=== PATIENT | male | born 1955 | race Caucasian/White ===

== ENCOUNTER → 2018-05-24 | Outpatient (CLI) | payer BC | LOC: MERGE 12:06 → BMCIMAGING 12:06 | PROVIDERS: ATTEND Family Medicine | DX: M79.645 Pain in left finger(s) (principal); M79.644 Pain in right finger(s) ==

== ENCOUNTER → 2018-05-27 | Outpatient (CLI) | payer BC | LOC: FIMAGING 18:09 → MERGE 18:09 | PROVIDERS: ATTEND Urology | DX: N20.0 Calculus of kidney (principal); N28.89 Other specified disorders of kidney and ureter; Z87.442 Personal history of urinary calculi ==

== ENCOUNTER 2018-06-11 12:54 | Day surgery (SDC) | payer BC ==
[2018-06-11] MEDS ORDERED: levOFLOXACIN 500 MG/DEXTROSE 100 ML IV ONE (13:02)
[2018-06-11] MEDS ORDERED: LR 1,000 ML IV ONE (13:02)
[2018-06-11] MEDS ORDERED: DEXAMETHASONE 4 MG/ML VIAL ONE (13:19)
[2018-06-11] MEDS ORDERED: fentaNYL 100 MCG/2 ML INJ ONE ×3 (13:19→18:42)
[2018-06-11] MEDS ORDERED: PROPOFOL 200 MG/20 ML VIAL ONE (13:19)
[2018-06-11] MEDS ORDERED: LIDOCAINE 2% 5 ML SDV ONE (13:19)
[2018-06-11] MEDS ORDERED: ONDANSETRON 4 MG/2 ML VIAL ONE (13:19)
--- NOTE | 2018-06-11 15:11 | PDHPUP ---
History & Physical Update H&P update statement: This history and physical update is based on an assessment of the patient which was completed after admission or registration (within 24 hours), but prior to the surgery/procedure. H&P update: H&P reviewed & patient examined, no change in patient's condition since H&P completed
--- NOTE | 2018-06-11 15:13 | PDANEPAE ---
ANE Past Medical History - Cardiovascular History Hx Hypertension: No Hx Arrhythmias: No Hx Chest Pain: No Hx Coronary Artery / Peripheral Vascular Disease: No Hx CHF / Valvular Disease: No Hx Palpitations: No - Pulmonary History Hx COPD: No Hx Asthma/Reactive Airway Disease: No Hx Recent Upper Respiratory Infection: No Hx Oxygen in Use at Home: No Hx Sleep Apnea: No Sleep Apnea Screening Result - Last Documented: Positive - Neurologic History Hx Cerebrovascular Accident: No Hx Seizures: No Hx Dementia: No - Endocrine History Hx Diabetes: No - Renal History Hx Renal Disorders: No Renal History Comment: KINEY STONES X3 LAST YEAR - Neurological & Psychiatric Hx Hx Neurological and Psychiatric Disorders: No - Cancer History Hx Cancer: No - Congenital Disorder History Hx Congenital Disorders: No - GI History Hx Gastrointestinal Disorders: No - Other Health History Other Health History: NEG - Chronic Pain History Chronic Pain: No - Surgical History Prior Surgeries: VASECTOMY. VASECTOMY REVERSAL ANE Review of Systems Review of Systems: - Exercise capacity METS (RN): 5 METS ANE Patient History - Allergies Allergies/Adverse Reactions: Sulfa (Sulfonamide Antibiotics) Allergy (Verified 06/04/18 11:18) BRIGHT RED SPOTS - Home Medications Home Medications: Flomax 06/04/18 [Last Taken 06/11/18 08:00] Ibuprofen 06/04/18 [Last Taken 06/04/18] Levaquin 750 mg PO 06/04/18 [Last Taken 06/11/18 08:00] - NPO status NPO Since - Liquids (Date): 06/11/18 NPO Since - Liquids (Time): 10:00 NPO Since - Solids (Date): 06/10/18 NPO Since - Solids (Time): 20:00 - Smoking Hx Smoking Status: Never smoked ANE Labs/Vital Signs - Vital Signs Blood Pressure: 121/84 Heart Rate: 81 Respiratory Rate: 14 O2 Sat (%): 95 Height: 182.88 cm Weight: 81.647 kg ANE Physical Exam - Airway Neck exam: FROM Mallampati Score: Class 2 Mouth exam: normal dental/mouth exam - Pulmonary Pulmonary: no respiratory distress, no rales or rhonchi, clear to auscultation - Cardiovascular Cardiovascular: regular rate and rhythym, no murmur, rub, or gallop - ASA Status ASA Status: II ANE Anesthesia Plan Anesthesia Plan: GA w LMA
[2018-06-11] MEDS ORDERED: SCOPOLAMINE HYDROBROMIDE 1 MG/3 DAYS PATCH TD SCH (15:15)
[2018-06-11] MEDS ORDERED: LIDOCAINE 2% JELLY 20 ML (UROJECT) ONE (15:17)
[2018-06-11] MEDS ORDERED: IOPAMIDOL (ISOVUE-M 300) 15 ML VIAL ONE (15:17)
[2018-06-11] MEDS ORDERED: MEPERIDINE 25 MG/0.5 ML AMP IVP PRN (15:20)
[2018-06-11] MEDS ORDERED: HYDROmorphONE/DILAUDID 2 MG/ML INJ IVP PRN (15:20)
[2018-06-11] MEDS ORDERED: oxyCODONE IR 5 MG TAB PO PRN (15:20)
[2018-06-11] MEDS ORDERED: PHENYLEPHRINE HCL 100 MCG/ML SYR IVP PRN (15:20)
[2018-06-11] MEDS ORDERED: ONDANSETRON 4 MG/2 ML VIAL IVP PRN (15:20)
[2018-06-11] MEDS ORDERED: PROMETHAZINE HCL 25 MG/ML INJ IVP PRN (15:20)
[2018-06-11] MEDS ORDERED: METOCLOPRAMIDE 10 MG/2 ML VIAL IVP PRN (15:20)
[2018-06-11] MEDS ORDERED: fentaNYL 100 MCG/2 ML INJ IVP PRN (15:20)
[2018-06-11] MEDS ORDERED: NALOXONE HCL 0.4 MG/ML INJ IVP PRN (15:20)
[2018-06-11] MEDS ORDERED: LR 500 ML IV PRN (15:20)
[2018-06-11] MEDS ORDERED: PROPOFOL/EMULSION 500 MG/50 ML BOTTLE IV ONE ×6 (15:22→18:34)
--- NOTE | 2018-06-11 16:02 | POSTANESTH ---
Post Anesthetic Evaluation Cardiovascular Status: Normal, Stable Respiratory Status: Normal, Stable Level of Consciousness/Mental Status: Can Participate in Eval Pain Control: Adequate, Prn Tx Ordered Nausea/Vomiting Control: Adequate, Prn Tx Ordered Complications Possibly Related to Anesthesia: None Noted
[2018-06-11] MEDS ORDERED: OPIUM/BELLADONNA ALKALO SUPP PR ONE (16:15)
--- NOTE | 2018-06-11 19:56 | POSTOPPROG ---
Post Op Note Date of Operation: 06/11/18 Surgeon: Parisa Maloney Anesthesiologist: Arturo Pre-op Diagnosis: right renal stone Post-op Diagnosis: same Indication: right renal stone, recent Klebsiella UTI Procedure: cysto, RURS, laser, stent,basket ext stone, intraop fluoro, RGP Findings: large hard difficult to access lower pole stone Inf/Abcess present in the surg proc area at time of surgery?: No EBL: Minimal Complications: None, pt tolerated procedure well Specimen(s): stone fragments
[2018-06-11 20:51] VITALS: BP 129/78
--- NOTE | 2018-06-12 16:55 | GOP ---
DATE OF OPERATION: 06/11/2018 SURGEON: Parisa Maloney MD ANESTHESIOLOGIST: Dr. Morris. PREOPERATIVE DIAGNOSIS: Right renal stone and recent urinary tract infection. POSTOPERATIVE DIAGNOSIS: Right renal stone and recent urinary tract infection. PROCEDURE PERFORMED: Cystoscopy, right ureteroscopy, laser lithotripsy, basket extraction of stone, intraoperative fluoroscopy, retrograde pyelogram, and placement of stent. FINDINGS: This was a very difficult case. He had a large, very hard, dense stone in the lower pole that was difficult to access with my scope due to his anatomy and the location of the stone and the angle of the stone that made lasering difficult. I spent 3 hours lasering the stone, and by 3 hours, I felt that I would come back at a second procedure and basket extract all of the stone. ESTIMATED BLOOD LOSS: Minimal. INDICATIONS: Right lower pole renal stone, 14 mm x 9 mm x 15mm stone, and recent klebsiella UTI. DESCRIPTION OF PROCEDURE: Patient was taken back to the cystoscopy suite, placed on the cystoscopy table in the supine position. General anesthesia induced without complication. Time-out performed. Core measures satisfied, including placement of Martha Hugger, SCDs, and administration of Rocephin antibiotic. He was brought to the end of the table, placed in a dorsal lithotomy position. All pressure points padded. Genitalia draped and prepped in the standard surgical fashion with Betadine. A rigid cystoscope easily cannulated the urethral meatus and was advanced atraumatically into the bladder. Best cystoscopy performed. Exam with no lesions, cellules, trabeculations, or abnormalities. The right ureteral orifice was easily identified. Two Glidewires were placed without difficulty in the right collecting system with fluoroscopic and cystoscopic guidance. Then, a 12/14- [place] ureteral access sheath was advanced without difficulty up into the right ureteropelvic junction area. Flexible cystoscope was advanced into the sheath and into the right kidney, and best nephroscopy performed, and there was the large stone that was consistent on CT scan that was seen in the lower pole. Laser was advanced to the level of the stone. There were actually 2 stones, one very sizable stone and another one right next to it. Laser was used to then start lasering the stone and the stone was very hard, it did not laser easily, and the angle at which it was sitting in the lower pole made access very difficult, and I had a very difficult time gaining access to the more medial aspect of this very large stone. I did use a normal Olympus ureteroscope for lasering initially, and then I felt this would be a case for using the disposable [employer] ureteroscope, and so I did switch over to the [employer], but this did not make it any easier to gain access to the stone with this disposable scope. Also, the retroflex made advancing the laser very difficult. Every time I needed to adjust my laser I would have to pull back into his renal pelvis, advance the laser, and then get back down into the stone, so it was a very tedious and difficult process, not only because of the density of the stone, but also because of the location, angle of the calyx, and its size. I did work for nearly 3 hours lasering the stone into dust, and at the end, I was able to finally basket the remainign solid stone and put it more into the upper pole of the renal pelvis, but there were several larger fragments; 90%, though, was dust and would likely pass on its own, but with these larger fragments and given that I had been doing this for 3 hours, I felt, at this time , it was necessary to come back for a second procedure, for a second look. So at this point, I had a safety wire still up. I removed the scope and the sheath together. I examined the wall of the ureter, which was healthy, without any injury or abnormalities. I then back-loaded my safety wire into the cystoscope and placed a 6-[place]imbabwean multivariable stent with a curl in the kidney pelvis and a nice curl in the bladder. The bladder was then emptied. Lidocaine jelly and belladonna opium suppository were placed. I now considered the procedure complete. He was awoken from anesthesia and transferred to PACU in good condition. We will follow up with a second-look procedure in a week to 2 weeks. COMPLICATIONS: None. INDICATIONS: The patient was referred to me by Dr. Natalie Sood for UTI and known lower pole stone. The stone had been watched with periodic CT scans and had gotten bigger throughout this time and, with his recent UTI, there was a definite need to treat him on this right-sided stone as it was likely colonized with the klebsiella bacteria. I discussed the need for complete clearance of the stone. I discussed that there may be more than one procedure that is needed, given the size of the stone as it is large, and I also discussed that it may be difficult gaining access up to the stone and a stent may need to be placed before actually starting to treat the stone. I discussed other risks, such as bleeding; infection; pain, injury to the urethra , the bladder, the right ureter, and again, need for subsequent procedures. He understood these risks and agreed to proceed. /[id number]/MODL MTDD
[2018-06-14] MEDS ORDERED: PATCH REMOVAL 1 EA PATCH TD SCH (15:09)
== END 2018-06-11 21:37 | disposition home or self-care (01) ==
LOC: FSGY 12:54
PROVIDERS: ATTEND Urology
PROC: 0TC08ZZ Extirpation of Matter from Right Kidney, Via Natural or Artificial Opening Endoscopic (ICD-10-PCS; principal; 2018-06-11 14:30)
PROC: 0T738DZ Dilation of Right Kidney Pelvis with Intraluminal Device, Via Natural or Artificial Opening Endoscopic (ICD-10-PCS; principal; 2018-06-11 14:30)
PROC: BT1D1ZZ Fluoroscopy of Right Kidney, Ureter and Bladder using Low Osmolar Contrast (ICD-10-PCS; principal; 2018-06-11 14:30)
DX: N20.0 Calculus of kidney (principal); N39.0 Urinary tract infection, site not specified; Z87.442 Personal history of urinary calculi
CPT/HCPCS: 82365-90; J0696; J1100; J1956; J2405; J2704; J3010; Q9967

== ENCOUNTER 2018-06-18 10:03 | Day surgery (SDC) | payer BC ==
[~2018-06-18 10:03] MED LIST: LR 1,000 ML IV ONE; OPIUM/BELLADONNA ALKALO SUPP PR PRN
[2018-06-18] MEDS ORDERED: LIDOCAINE 2% 2 ML INJ ONE (10:50)
[2018-06-18] MEDS ORDERED: ONDANSETRON 4 MG/2 ML VIAL ONE (10:50)
[2018-06-18] MEDS ORDERED: fentaNYL 100 MCG/2 ML INJ ONE (10:50)
[2018-06-18] MEDS ORDERED: DEXAMETHASONE 4 MG/ML VIAL ONE (10:50)
[2018-06-18] MEDS ORDERED: PROPOFOL 200 MG/20 ML VIAL ONE (10:50)
[2018-06-18] MEDS ORDERED: MIDAZOLAM 2 MG/2 ML VIAL IVP ONE (10:59)
[2018-06-18] MEDS ORDERED: NALOXONE HCL 0.4 MG/ML INJ IVP PRN (11:00)
[2018-06-18] MEDS ORDERED: MEPERIDINE 25 MG/0.5 ML AMP IVP PRN (11:00)
[2018-06-18] MEDS ORDERED: ONDANSETRON 4 MG/2 ML VIAL IVP PRN (11:00)
[2018-06-18] MEDS ORDERED: LR 500 ML IV PRN (11:00)
[2018-06-18] MEDS ORDERED: HYDROmorphONE/DILAUDID 2 MG/ML INJ IVP PRN (11:00)
[2018-06-18] MEDS ORDERED: fentaNYL 100 MCG/2 ML INJ IVP PRN (11:00)
[2018-06-18] MEDS ORDERED: PROMETHAZINE HCL 25 MG/ML INJ IVP PRN (11:00)
[2018-06-18] MEDS ORDERED: METOCLOPRAMIDE 10 MG/2 ML VIAL IVP PRN (11:00)
[2018-06-18] MEDS ORDERED: PHENYLEPHRINE HCL 100 MCG/ML SYR IVP PRN (11:00)
[2018-06-18] MEDS ORDERED: oxyCODONE IR 5 MG TAB PO PRN (11:00)
[2018-06-18] MEDS ORDERED: PROPOFOL/EMULSION 500 MG/50 ML BOTTLE IV ONE ×4 (11:55→13:24)
[2018-06-18] MEDS ORDERED: SCOPOLAMINE HYDROBROMIDE 1 MG/3 DAYS PATCH TD SCH (12:00)
--- NOTE | 2018-06-18 12:16 | PDANEPAE ---
ANE Past Medical History - Cardiovascular History Hx Hypertension: No Hx Arrhythmias: No Hx Chest Pain: No Hx Coronary Artery / Peripheral Vascular Disease: No Hx CHF / Valvular Disease: No Hx Palpitations: No - Pulmonary History Hx COPD: No Hx Asthma/Reactive Airway Disease: No Hx Recent Upper Respiratory Infection: No Hx Oxygen in Use at Home: No Hx Sleep Apnea: No Sleep Apnea Screening Result - Last Documented: Negative - Neurologic History Hx Cerebrovascular Accident: No Hx Seizures: No Hx Dementia: No - Endocrine History Hx Diabetes: No - Renal History Hx Renal Disorders: Yes Renal History Comment: kidney stones x3 in last year. previous surgery with Fronczak - Liver History Hx Hepatic Disorders: No - Neurological & Psychiatric Hx Hx Neurological and Psychiatric Disorders: No - Cancer History Hx Cancer: No - Congenital Disorder History Hx Congenital Disorders: No - GI History Hx Gastrointestinal Disorders: No - Other Health History Other Health History: wears glasses - Chronic Pain History Chronic Pain: No - Surgical History Prior Surgeries: 06/11/18 ureteroscopy with laser lithotripsy with Fronczak. VASECTOMY. VASECTOMY REVERSAL ANE Review of Systems Review of Systems: - Exercise capacity METS (RN): 5 METS ANE Patient History - Allergies Allergies/Adverse Reactions: Sulfa (Sulfonamide Antibiotics) Allergy (Verified 06/17/18 16:40) BRIGHT RED SPOTS - Home Medications Home Medications: Flomax 06/04/18 [Last Taken 06/18/18] Levaquin 06/17/18 [Last Taken 06/18/18] Oxybutynin 06/17/18 [Last Taken 06/18/18] Percocet 5/325 (*) 06/17/18 [Last Taken 06/14/18] Phenazopyridine HCl 06/17/18 [Last Taken 06/18/18] Vesicare 06/17/18 [Last Taken 06/18/18] - NPO status NPO Since - Liquids (Date): 06/17/18 NPO Since - Liquids (Time): 21:00 NPO Since - Solids (Date): 06/18/18 NPO Since - Solids (Time): 07:00 - Anes Hx Anes Hx: no prior problems - Smoking Hx Smoking Status: Never smoked - Family Anes Hx Family Anes Hx: none Family Hx Anesthesia Complications: none ANE Labs/Vital Signs - Vital Signs Blood Pressure: 104/71 Heart Rate: 72 Respiratory Rate: 12 O2 Sat (%): 93 Height: 182.88 cm Weight: 81.647 kg ANE Physical Exam - Airway Neck exam: FROM Mallampati Score: Class 1 Mouth exam: normal dental/mouth exam - Pulmonary Pulmonary: no respiratory distress, no rales or rhonchi, clear to auscultation - Cardiovascular Cardiovascular: regular rate and rhythym, no murmur, rub, or gallop - ASA Status ASA Status: II ANE Anesthesia Plan Anesthesia Plan: GA w LMA Total IV Anesthesia: Yes
[2018-06-18] MEDS ORDERED: LIDOCAINE 2% JELLY 20 ML (UROJECT) ONE (12:37)
[2018-06-18] MEDS ORDERED: OPIUM/BELLADONNA ALKALO SUPP PR ONE (12:38)
[2018-06-18] MEDS ORDERED: IOPAMIDOL (ISOVUE-M 300) 15 ML VIAL ONE (12:43)
--- NOTE | 2018-06-18 14:12 | POSTOPPROG ---
Post Op Note Date of Operation: 06/18/18 Surgeon: Parisa Maloney Anesthesiologist: Arturo Anesthesia: GET(General Endotracheal) Pre-op Diagnosis: right renal stones Post-op Diagnosis: same Indication: right renal stones, staged treatment of very large renal stone Procedure: cysto,RURS,laserlithotripys,stent, fluoro,basket ext stone Findings: stone fragments lasered, removed Inf/Abcess present in the surg proc area at time of surgery?: No EBL: Minimal Complications: None, pt tolerated procedure well Specimen(s): stone fragments
--- NOTE | 2018-06-18 15:16 | GOP ---
[f rep st] OPERATIVE REPORT DATE OF OPERATION: 06/18/2018 SURGEON: Parisa Maloney MD ANESTHESIOLOGIST: Yuan Morris MD. PREOPERATIVE DIAGNOSIS: Right renal stones. POSTOPERATIVE DIAGNOSIS: Right renal stones. PROCEDURE PERFORMED: Cystoscopy, right ureteroscopy, laser lithotripsy, stent, intraoperative fluoro scopy, basket extraction of stone. FINDINGS: Stone fragments were lasered and all removed. INDICATIONS: Patient had a 1.5 x 1.4 x 9.9 cm stone in his right kidney which I lasered and basket e xtracted some stones 1 week ago, but due to the difficulty in the lasering, the hardness of the stone and the location, I was unable to clear him of stone and given he had a Klebsiella UTI recently, I n eeded to clear him of all the stones, plus he had large fragments still remaining, so he presents tod ay for a second stone procedure as part of a staged procedure. The rationale, risks, and benefits in cluding bleeding, infection, pain, injury to the urethra, the bladder, the ureter, need for subsequen t procedures and need for a stent were all discussed and he agreed to proceed. DESCRIPTION OF PROCEDURE: Patient was taken back to the cystoscopy suite and placed on the cystoscop y table in a supine position. General anesthesia induced without complication. Time-out performed. Core measures satisfied including placement of a Martha Hugger, SCDs and administration of Rocephin an tibiotics. He was brought to the end of the table, placed in dorsal lithotomy position. All pressur e points padded. Genitalia draped and prepped in the standard surgical fashion with Betadine. A rig id cystoscope easily cannulated the urethral meatus, advanced atraumatically into the bladder. Flowers c ystoscopy performed and there were stones and stone fragments in the bladder, which I would remove at the end of the case. Right stent easily visualized. Distal end externalized with a grasper. [place] wire placed through the lumen of the stent with fluoroscopic guidance and cystoscopic guidance into t he right renal pelvis. Then a second wire was placed with cystoscopic and fluoroscopic guidance. A 12/14-[place]ux[place]ish ureteral access sheath was advanced over the working wire without difficulty. Then a fl exible ureteroscope advanced through the sheath into the right kidney and a very large fragment was e ncountered. It was not able to be basketed with a Zero-tip, so I did laser it with a laser fiber int o fragments. All these fragments were then removed with the basket. I looked around and there were other smaller fragments that were removed with the basket. There was quite a bit of dust as well, bu t I was very impressed with how much stone, sediment and stone dust that had already passed from our procedure last week. I did multiple nephroscopies to make sure there were no other stones to be sohail melany and, at the end of the case, I felt all stone fragments had been removed and what was there was d ust that would easily pass. His safety wire was still up, so I removed the sheath and the scope toge ther en bloc and the ureter appeared well without any injury. The safety wire was still up and I tish k loaded into the cystoscope and then placed a 6-[place]ux[place]bourg[place] 26 cm double-J stent with fluoroscopic and cy stoscopic guidance. There was a wonderful curl in the kidney and a nice curl in the bladder. His bl adder was then emptied. I removed some of the stone fragments that I had noted when I first went in with the cystoscope and I cleared him of all the stone fragments in the bladder. I emptied his bladd er, placed lidocaine jelly, placed belladonna opium suppository per rectum for pain and, at this poin t, the procedure was considered complete. He was awoken from anesthesia and transferred to PACU in g ood condition. /[id number]/MODL
[2018-06-18 15:50] VITALS: BP 106/75
[2018-06-21] MEDS ORDERED: PATCH REMOVAL 1 EA PATCH TD SCH (11:47)
== END 2018-06-18 15:51 | disposition home or self-care (01) ==
LOC: FSGY 10:03
PROVIDERS: ATTEND Urology
PROC: 0TC08ZZ Extirpation of Matter from Right Kidney, Via Natural or Artificial Opening Endoscopic (ICD-10-PCS; principal; 2018-06-18 11:15)
PROC: 0T768DZ Dilation of Right Ureter with Intraluminal Device, Via Natural or Artificial Opening Endoscopic (ICD-10-PCS; principal; 2018-06-18 11:15)
PROC: 0TF38ZZ Fragmentation in Right Kidney Pelvis, Via Natural or Artificial Opening Endoscopic (ICD-10-PCS; principal; 2018-06-18 11:15)
PROC: BT1D1ZZ Fluoroscopy of Right Kidney, Ureter and Bladder using Low Osmolar Contrast (ICD-10-PCS; principal; 2018-06-18 11:15)
DX: N20.0 Calculus of kidney (principal); Z87.440 Personal history of urinary (tract) infections; Z87.442 Personal history of urinary calculi; Z88.2 Allergy status to sulfonamides
CPT/HCPCS: 52356; C1758; C1769; C1894; 82365-90; C2625; J0696; J1100; J2405; J2704; J3010; Q9967